=== PATIENT | female | born 1950 | race Hispanic/Latino ===

== ENCOUNTER 2023-01-18 09:34 | Outpatient (CLI) | payer MEDICARE, MEDICAID | END 2023-01-18 09:35 | disposition home or self-care (01) | LOC: CSHWCC 09:34 | PROVIDERS: ATTEND Nurse Practitioner Family | DX: T81.89XD Other complications of procedures, not elsewhere classified, subsequent encounter (principal) | CPT/HCPCS: 97139; 97605; G0463; 99203 ==

== ENCOUNTER 2023-02-26 08:03 | Outpatient (CLI) | payer MEDICARE, MEDICAID | END 2023-02-26 08:04 | disposition home or self-care (01) | LOC: CSHWCC 08:03 | PROVIDERS: ATTEND Nurse Practitioner Family | DX: T81.89XD Other complications of procedures, not elsewhere classified, subsequent encounter (principal); R60.0 Localized edema | CPT/HCPCS: 11042; 11045 ==

== ENCOUNTER 2023-03-19 08:11 | Outpatient (CLI) | payer MEDICARE, MEDICAID | END 2023-03-19 08:12 | disposition home or self-care (01) | LOC: CSHWCC 08:11 | PROVIDERS: ATTEND Nurse Practitioner Family | DX: R60.0 Localized edema (principal); T81.89XD Other complications of procedures, not elsewhere classified, subsequent encounter | CPT/HCPCS: 11042 ==

== ENCOUNTER 2023-04-09 08:06 | Outpatient (CLI) | payer MEDICARE, MEDICAID | END 2023-04-09 08:07 | disposition home or self-care (01) | LOC: CSHWCC 08:06 | PROVIDERS: ATTEND Nurse Practitioner Family | DX: T81.89XD Other complications of procedures, not elsewhere classified, subsequent encounter (principal) | CPT/HCPCS: 97139; G0463; 99213 ==

== ENCOUNTER 2023-05-07 08:09 | Outpatient (CLI) | payer MEDICARE, MEDICAID | END 2023-05-07 08:10 | disposition home or self-care (01) | LOC: CSHWCC 08:09 | PROVIDERS: ATTEND Nurse Practitioner Family | DX: T81.89XD Other complications of procedures, not elsewhere classified, subsequent encounter (principal) | CPT/HCPCS: 97139; G0463; 99211 ==

== ENCOUNTER 2023-05-21 08:49 | Outpatient (CLI) | payer OTHER, MEDICARE, MEDICAID | END 2023-05-21 08:50 | disposition home or self-care (01) | LOC: CSHWCC 08:49 | PROVIDERS: ATTEND Nurse Practitioner Family | DX: V49.88XD Car occupant (driver) (passenger) injured in other specified transport accidents, subsequent encounter (principal) | CPT/HCPCS: 97139; G0463; 99212 ==